=== PATIENT | male | born 1985 | race Two or more races ===

== ENCOUNTER 2018-08-14 09:35 | Outpatient (CLI) | payer OTHER | END 2018-08-14 09:59 | disposition home or self-care (01) | LOC: RAD 501 09:35 | DX: M21.41 Flat foot [pes planus] (acquired), right foot (principal); M21.42 Flat foot [pes planus] (acquired), left foot ==

== ENCOUNTER → 2018-09-18 | Outpatient (CLI) | payer OTHER | END | disposition home or self-care (01) | LOC: SONOGRAMA 14:59 | DX: K76.89 Other specified diseases of liver (principal) ==